=== PATIENT | female | born 1970 | race Caucasian/White ===

== ENCOUNTER 2019-06-23 11:18 | Emergency (ER) | payer OTHER | END 2019-06-23 12:51 | disposition home or self-care (01) | LOC: JER 11:18 | CPT/HCPCS: 99283-25 ==

== ENCOUNTER 2020-11-28 15:27 | Emergency (ER) | payer OTHER ==
[2020-11-28 15:43] VITALS: TEMP 98; BMI 38.4
[2020-11-28 18:18] VITALS: BP 118/67; PULSE 79
== END 2020-11-28 18:47 | disposition home or self-care (01) ==
LOC: JER 15:27
DX: S90.862A Insect bite (nonvenomous), left foot, initial encounter (principal); L03.116 Cellulitis of left lower limb; W57.XXXA Bitten or stung by nonvenomous insect and other nonvenomous arthropods, initial encounter
CPT/HCPCS: 73630-TC-LT; 93971-LT; 99284-25